=== PATIENT | male | born 2000 | race Caucasian/White ===

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

== ENCOUNTER → 2021-02-16 | Outpatient (CLI) | payer BC, OTHER | END | disposition home or self-care (01) | LOC: COVID19 15:08 | PROVIDERS: ATTEND Student in an Organized Health Care Education/Training Program | DX: U07.1 COVID-19 (principal) ==

== ENCOUNTER → 2021-02-22 | Outpatient (CLI) | payer BC | END | disposition home or self-care (01) | LOC: COVID19 15:07 | PROVIDERS: ATTEND Internal Medicine | DX: U07.1 COVID-19 (principal) ==

== ENCOUNTER → 2021-02-28 | Outpatient (CLI) | payer BC | END | disposition home or self-care (01) | LOC: COVID19 15:19 | PROVIDERS: ATTEND Internal Medicine | DX: Z20.822 Contact with and (suspected) exposure to COVID-19 (principal) ==